=== PATIENT | male | born 1965 | race Caucasian/White ===

== ENCOUNTER 2016-08-13 20:08 | Emergency (ER) | payer OTHER ==
[~2016-08-13] VITALS: Ht 182.9 cm; Wt 96.6 kg
[~2016-08-13 20:08] MED LIST: ADVAIR 100-501 EACH IH; HYDROCHLOROTHIA25 MG PO; MOTRIN800 MG PO; NEXIUM40 MG PO; PLENDIL10 MG PO
[2016-08-13] MEDS ORDERED: DULERA 100 MCG/13 GM IH (21:40)
[2016-08-13] MEDS ORDERED: FELODIPINE ER10 MG PO (21:40)
[2016-08-13] MEDS ORDERED: ESOMEPRAZOLE MA40 MG PO (21:40)
[2016-08-13] MEDS ORDERED: AMOXICILLIN500 MG PO (22:09)
[2016-08-13 22:39] VITALS: BP 132/88
== END 2016-08-13 22:40 | disposition home or self-care (01) ==
LOC: EME 20:08
PROC: 3E0T3BZ Introduction of Anesthetic Agent into Peripheral Nerves and Plexi, Percutaneous Approach (ICD-10-PCS; principal; 2016-08-13)
DX: K04.7 Periapical abscess without sinus (principal); F17.200 Nicotine dependence, unspecified, uncomplicated
CPT/HCPCS: 99281; 99283; S0020